=== PATIENT | male | born 1990 | race Two or more races ===

== ENCOUNTER 2019-03-31 20:27 | Emergency (ER) | payer OTHER ==
[~2019-03-31] VITALS: Ht 167.6 cm; Wt 68.0 kg
[~2019-03-31 20:27] MED LIST: ALBU90OI; ALBU90OI INH; AZIT250 PO; FLUSAL2505; FLUT.05NI; HYDACE5 PO; HYDR1TAB94 PO; LORA10ER; MONT10T; OXYACE5T PO; PROACE100 PO; RXCLIN PO; RXPROACE PO; Silver Sulfadi400 GM TP
[2019-04-02 04:07] LABS: HCV ANTIBODY <0.1 (0.0-0.9); HIV SCREEN 4TH GENERATION WRFX Non Reactive (Non Reactive)
== END 2019-03-31 22:15 | disposition home or self-care (01) ==
LOC: ER 20:27
PROVIDERS: Physician Assistant
DX: S60.411A Abrasion of left index finger, initial encounter (principal); F17.200 Nicotine dependence, unspecified, uncomplicated; Z77.21 Contact with and (suspected) exposure to potentially hazardous body fluids; Z88.5 Allergy status to narcotic agent; Z88.8 Allergy status to other drugs, medicaments and biological substances; Z88.1 Allergy status to other antibiotic agents; Y93.E5 Activity, floor mopping and cleaning
CPT/HCPCS: 36415; 84460; 86317; 86803; 87389; 99283

== ENCOUNTER 2023-12-03 10:35 | Observation (INO) | payer OTHER ==
[~2023-12-03] VITALS: Ht 167.6 cm; Wt 68.0 kg
[2023-12-04 09:35] VITALS: BP 114/72
== END 2023-12-04 09:30 | disposition home or self-care (01) ==
LOC: ER 10:35 → PCU 10:36
PROVIDERS: ADMIT Internal Medicine
DX: R79.89 Other specified abnormal findings of blood chemistry (principal); R65.10 Systemic inflammatory response syndrome (SIRS) of non-infectious origin without acute organ dysfunction; I51.4 Myocarditis, unspecified; T88.1XXA Other complications following immunization, not elsewhere classified, initial encounter; B34.9 Viral infection, unspecified; Z88.5 Allergy status to narcotic agent; Z88.8 Allergy status to other drugs, medicaments and biological substances; Z20.822 Contact with and (suspected) exposure to COVID-19